=== PATIENT | female | born 1990 | race Two or more races ===

== ENCOUNTER 2019-08-28 20:25 | Inpatient (IN) | payer OTHER ==
[~2019-08-28] VITALS: Ht 170.2 cm; Wt 80.3 kg
[2019-08-29] MEDS ORDERED: MIRTAZAPINE15 MG PO (08:21)
[2019-08-29] MEDS ORDERED: ESCITALOPRAM OX10 MG PO (08:21)
[2019-08-29] MEDS ORDERED: ESCITALOPRAM OX20 MG PO (08:51)
[2019-08-29] MEDS ORDERED: FALMINA1 EACH (08:52)
== END 2019-09-01 12:39 | disposition home or self-care (01) | DRG 440 ==
LOC: MEDI 20:25 → MEDJ 20:25 → MEDI 09-01 12:39
PROVIDERS: ADMIT Internal Medicine; ATTEND Internal Medicine
PROC: BW20YZZ Computerized Tomography (CT Scan) of Abdomen using Other Contrast (ICD-10-PCS; 2019-08-29)
PROC: 0DJ08ZZ Inspection of Upper Intestinal Tract, Via Natural or Artificial Opening Endoscopic (ICD-10-PCS; principal; 2019-08-30)
DX: K85.80 Other acute pancreatitis without necrosis or infection (principal); K29.60 Other gastritis without bleeding; F32.9 Major depressive disorder, single episode, unspecified; J45.909 Unspecified asthma, uncomplicated; J32.9 Chronic sinusitis, unspecified